=== PATIENT | female | born 1935 | race Caucasian/White ===

== ENCOUNTER 2016-08-15 05:57 | Inpatient (IN) | payer MEDICARE, OTHER, MEDICAID ==
[~2016-08-15] VITALS: Ht 40.6 cm; Wt 83.2 kg
--- NOTE | ~2016-08-15 | ECH ---
Transthoracic Echocardiography Report (TTE) Demographics Patient Name CRISTAL KIRK Date of Study 08/22/2016 Patient Number [id number] Visit Number [id number] Date of 1935 Room Number 618 Accession Number [id number] Gender Female Age 81 year(s) Referring Silvano Gonzales Gas Blender Danisha Gray [facility] Physician MD Pauly Fairchild MD Physician Interpreting [facility] [employer] Screw Machine Set Up Operator Physician MD Supervising Ordering Physician Pauly Fairchild MD, MD/P Nurse Stress Microbiology Lab Analyst Conclusions Summary Technically good exam. The estimated left ventricular ejection fraction is 60%. Diastolic assessment reveals Grade I diastolic dysfunction. There is mild aortic regurgitation by color Doppler. Procedure Type of Study TTE procedure:Echo Complete SF. Procedure Date Date: 08/22/2016 Start: 02:43 PM Technical Quality: Good visualization Indications:Elevated Troponin and Hypertension. Appropriate Use Criteria: 9 Height: 64 inches Weight: 182 pounds BSA: 1.88 m Rhythm: NSR HR: 82 bpm BP: 155/65 mmHg M-Mode/2D Measurements LV Diastolic Dimension: 4.44 cm LV Systolic Dimension: 3.1 cm LV Septum Diastolic: 0.94 cm LV PW Diastolic: 0.92 cm AO Root Dimension: 3.03 cm Cardiac Output: 4.49 l/min LA Dimension: 3.45 cm Cardiac Index: 2.39 l/min*m RV Diastolic Dimension: 3.12 cm LA volume index: 27 ml/m LVOT: 1.8 cm LVOT VTI: 21.53 cm RV Base: 2.9 cm LV Stroke volume: 54.76 ml RV Mid: 2.3 cm LV Stroke volume index: 29.13 ml/m TAPSE: 2.7 cm TDI-S': 15 cm/s Doppler Measurements AV Peak Velocity: 1.4 m/s MV Peak E-Wave: 0.94 m/s AV Peak Gradient: 7.84 mmHg MV Peak A-Wave: 1.15 m/s AV Mean Gradient: 4.46 mmHg MV E/A Ratio: 0.82 LVOT Peak Velocity: 1 m/s MV P1/2t: 80.1 msec AV Area (Continuity):2.04 cm AV P1/2t: 441.7 msec MV Deceleration Time: 327.4 msec TR Velocity:2.68 m/s MV Area (PHT): 2.75 cm TR Gradient:28.73 mmHg PV Peak Velocity: 1.15 m/s Estimated RAP:3 mmHg PV Peak Gradient: 5.31 mmHg Estimated RVSP: 32 mmHg Estimated PASP: 31.73 mmHg E' Septal Velocity: 0.08 m/s A' Septal Velocity: 0.1 m/s E' Lateral Velocity: 0.1 m/s A' Lateral Velocity: 0.12 m/s RA Area: 12.59 cm Findings Left Ventricle Normal left ventricle size and function. Diastolic assessment reveals Grade I diastolic dysfunction. Right Ventricle Normal right ventricle structure and function. Left Atrium Normal left atrial size. Right Atrium Normal right atrial size. Mitral Valve Normal mitral valve structure and function. Mild mitral regurgitation by color Doppler. Aortic Valve The aortic valve is mildly sclerotic. There is mild aortic regurgitation by color Doppler. Tricuspid Valve Normal tricuspid valve structure and function. Trivial tricuspid regurgitation by color Doppler. Normal pulmonary pressures. Pulmonic Valve Normal pulmonic valve structure and function. Trivial pulmonic valve regurgitation by color Doppler. Pericardial Effusion No evidence of pericardial effusion. Miscellaneous Visualized portions of the aortic root and ascending aorta appear normal in size. Suboptimal subcostal window to evaluate the IVC and interatrial septum. Pleural Effusion No evidence of pleural effusion. Signature
--- NOTE | 2016-08-22 15:06 | CO ---
ADMIT: 08/18/2016 RM/LOC: 618 [facility] MR#: [id number] [address] [place], [place] [address] CRISTAL KIRK [address] [facility] [address] [place] [address] Consultation SEX: F AGE: 81 : 1935 DATE OF CONSULTATION: 08/22/2016 ATTENDING PHYSICIAN: Christian Schaefer CONSULTING PHYSICIAN: Geo Coats MD REASON FOR CONSULT: Evaluation of hypertension and positive troponin. HISTORY OF PRESENT ILLNESS: The patient is a very pleasant, 81-year-old female, who normally sees Dr. Knight up in [place]. Sees her for hypothyroidism, hypertension. Has had some issues where she has had to go to the ER in the last few years for elevated hypertension. Has never really stayed over night it sounds like. The patient states that overall she has had some substernal upper epigastric pain worse this morning. No fevers. No chills. Some very mild shortness of breath. Gets fatigued very easily. She had a ventral hernia repair and was admitted to the hospital for that on the and has really struggled with some postop ileus since that time. She has had some intermittent severe hypertension at times treated with IV hydralazine with great response. The patient remains with NG in to suction at this time. The patient otherwise prior to all this surgery had been in her usual state of health. Overall, not as active as she used to be due to some back surgery in the last year but really up until that point in time was an avid walker, walking all [place], it sounds like. PAST MEDICAL HISTORY: 1. Hypothyroidism postsurgical. 2. History of hysterectomy, cholecystectomy, back surgery. 3. Hypertension. 4. Chronic back pain. FAMILY HISTORY: Significant for her mother dying of heart disease during bypass at age 75. SOCIAL HISTORY: Smoked for about 30 years but quit 30 some years ago as well. No alcohol use. . Lives at home in [place]. MEDICATIONS: Current medications include: 1. Coreg 25 mg p.o. b.i.d. 2. Aspirin 81 mg a day. 3. Arimidex 1 mg daily. 4. Cozaar 100 mg at. 5. Balsalazide 400 mg p.o. t.i.d. 6. Effexor 75 mg daily. 7. Lactulose. 8. Pravachol. 9. Synthroid. 10.Dulcolax suppository. 11.Lovenox. 12.Colace. ADMIT: 08/18/2016 RM/LOC: 618 [facility] MR#: [id number] [address] [address] CRISTAL KIRK [address] [id number] Consultation SEX: F AGE: 81 : 1935 13.Caltrate. REVIEW OF SYSTEMS: As per HPI. Otherwise, completely reviewed and negative. PHYSICAL EXAMINATION: VITAL SIGNS: Blood pressure currently is 180/74, pulse is 82, O2 saturation 93% on room air. GENERAL: She is alert and oriented x3. No acute distress. Very pleasant. Talkative. HEENT: Normocephalic, atraumatic. Pupils are equal bilaterally. Dry mucous membranes. NG in place. NECK: No lymphadenopathy. Soft, supple. Trachea midline. LUNGS: Clear to auscultation bilaterally. No wheezes, rales, or rhonchi. HEART: Regular rate and rhythm. No murmurs, rubs, or gallops. ABDOMEN: Soft, nontender, nondistended. Bowel sounds present. EXTREMITIES: No cyanosis, clubbing, or edema. MUSCULOSKELETAL: 5/5 strength in all 4 extremities. NEUROLOGICAL: No focal deficits noted. Cranial nerves II through XII grossly intact. SKIN: No rashes noted. LABORATORY AND X-RAY DATA: Creatinine is 0.8, troponin 0.09, CK is 330, CK-MB is negative. Hemoglobin 10.7, platelets 373. Potassium 3.5, carbon dioxide 24. AST, ALT, and bilirubin all normal. Chest CT scan shows some atelectasis only. No PE reported. IMAGING: CT scan is pending. ASSESSMENT AND PLAN: 1. Status post ventral hernia repair. 2. Postop ileus. 3. Hypertension. 4. Positive troponin. ADMIT: 08/18/2016 RM/LOC: 618 [facility] MR#: [id number] [address] [address] CRISTAL KIRK [facility] [place] [address] Consultation SEX: F AGE: 81 : 1935 At this point in time, we will add some p.r.n. hydralazine IV. I really question if she is absorbing much of her oral antihypertensives due to her ileus. We will just watch her closely with IV hydralazine for now. Possibly and labetalol IV if necessary. In regards to her troponin, it is very mildly elevated at 0.09. May have some underlying disease at baseline but her EKG reviewed today looks okay. Likely needs an outpatient stress evaluation once she is improved. We will check a troponin again later today. Get an echo. Thank you for this consult. We will continue to follow along with her while she is hospitalized. Please do not hesitate to call with questions. Geo Coats MD/ elvia JOB #: [id number] CC: Christian Schaefer, Attending Physician [place] Knight, Family Physician
--- NOTE | 2016-08-24 20:44 | OR ---
ADMIT: 08/15/2016 RM/LOC: [facility] MR#: [id number] [address] [address] CRISTAL KIRK [address] [address] Operative/Delivery Room Report SEX: F AGE: 81 : 1935 SURGERY DATE: 08/15/2016 SURGEON: Christian Schaefer MD PREOPERATIVE DIAGNOSIS: Multiple ventral incisional hernias. POSTOPERATIVE DIAGNOSIS: Multiple ventral incisional hernias. PROCEDURE: Laparoscopic repair of multiple ventral incisional hernias with Ventralight ST 11.4 cm circular mesh. LEAD INFORMATICA DEVELOPER: Gigi Rowell MD, whose assistance was necessary for laparoscopic visualization and tissue retraction. ANESTHESIA: General endotracheal. ESTIMATED BLOOD LOSS: 10 mL. DESCRIPTION OF PROCEDURE: The patient was taken to the operating room and placed supine on the operating room table. General anesthesia was established. The abdomen was prepped and draped in the standard surgical fashion. A 5 mm subcostal incision was made in the left mid clavicular line. A Veress needle was advanced into the peritoneal cavity. Carbon dioxide was used to insufflate the abdomen to 15 mmHg pressure. The Veress needle was withdrawn, and a 5 mm Optiview trocar was placed. Next, a 5 mm infraumbilical left lateral ports were placed under visualization. A 12 mm left lower quadrant port was placed under visualization as well. Adhesions into the anterior abdominal wall were taken down with Harmonic Scalpel. The chronically incarcerated small piece of omental fat was reduced from the largest of the defects. Additional adhesiolysis allowed complete exposure of the right upper quadrant abdominal wall. There were two other smaller defects. One of these was repaired primarily with a [id number] 0 Ethibond suture as it was quite small. The 11.[address] mesh was placed intra-abdominally. The fascial margins of the largest defect were ADMIT: 08/15/2016 RM/LOC: [facility] MR#: [id number] [address] [address] CRISTAL KIRK [address] [address] Operative/Delivery Room Report SEX: F AGE: 81 : 1935 closed primarily with 0 Ethibond suture and the suture passer. This repair was then buttressed with the Ventralight mesh which was brought to the anterior abdominal wall with the Echo positioning system. This was then secured circumferentially as well as in the center of the mesh with the SecureStrap device. This provided excellent overlap of the defects. The ports were then removed under visualization without evidence of bleeding. The fascial margin at the 12 mm port site was approximated with 0 Vicryl suture and the suture passer. The abdomen was allowed to deflate. Skin edges were approximated with 4-0 Monocryl in a subcuticular fashion and Dermabond. Local anesthetic was injected at the incisions. Sponge, needle, and instrument counts were correct at the end of the case. The patient tolerated the procedure well and transferred to the recovery area in stable condition. Christian Schaefer MD/ ben JOB #: [id number] CC: Christian Schaefer, Attending Physician [place] Knight, Family Physician
[2016-08-26] MEDS ORDERED: CARVEDILOL25 MG PO (11:37)
[2016-08-26] MEDS ORDERED: EFFEXOR XR75 MG PO (11:37)
[2016-08-26] MEDS ORDERED: LEVOTHYROXINE50 MCG PO (11:38)
[2016-08-26] MEDS ORDERED: BALSALAZIDE DI750 MG PO (11:38)
[2016-08-26] MEDS ORDERED: COZAAR DPS50 MG PO (11:38)
[2016-08-26] MEDS ORDERED: PRAVACHOL80 MG PO (11:38)
[2016-08-26] MEDS ORDERED: ENULOSE10 GM/15 M PO (11:38)
[2016-08-26] MEDS ORDERED: DAILY MULTIPLE1 EAC1 PO (11:39)
[2016-08-26] MEDS ORDERED: COLACE-DPS100 MG PO (11:39)
[2016-08-26] MEDS ORDERED: ARIMIDEX DPS1 MG PO (11:39)
[2016-08-26] MEDS ORDERED: CALCIUM 600 +1 EAC6 PO (11:39)
[2016-08-26] MEDS ORDERED: ASA325 MG PO (11:39)
[2016-08-26] MEDS ORDERED: NORVASC5 MG PO (11:40)
[2016-08-26] MEDS ORDERED: DULCOLAX-DPS10 MG PR (11:40)
--- NOTE | 2016-09-01 11:05 | DS ---
ADMIT: 08/18/2016 RM/LOC: 618 [facility] MR#: [id number] [address] [address] CRISTAL KIRK [address] [address] Discharge Summary SEX: F AGE: 81 : 1935 ADMISSION DATE: 08/18/2016 DISCHARGE DATE: 08/25/2016 ADMITTING DIAGNOSIS: Multiple ventral incisional hernias. DISMISSAL DIAGNOSES: 1. Multiple ventral incisional hernias. 2. Hypothyroidism. 3. Hypertension. 4. Chronic back pain. 5. Previous hysterectomy. 6. Previous cholecystectomy. 7. Previous back surgery. PROCEDURES: Laparoscopic repair of multiple ventral hernias with VentraLight ST 11.4 cm circular mesh. HOSPITAL COURSE: The patient was a short-stay admit with routine med surg orders. After surgery, the patient remained in short-stay and was given morphine IV push in addition to oral pain medications for pain control. This unfortunately did not control his pain, and so the patient was admitted for observation with a Dilaudid HEAD CHEF. He continued to have exquisite pain. His abdomen was distended and overall was not feeling well. He was then changed to an inpatient status and perf series was ordered, which revealed partial small-bowel obstruction versus ileus. An NG was placed at this time. Afterward, the patient was quite a bit nauseous. However, she was ambulating well. Then on postop day #2, it was noted that she became very hypertensive, systolics were about in the 200 range which was treated with hydralazine IV. It sounds like on postop day #3, the patient developed some chest pressure. Cardiac workup was undertaken with CK, troponin, 12-lead EKG, and home blood pressure medications were continued. EKG was negative along with her cardiac workup. Because of the complexity of this case, BRYNN was consulted. On postop day #4, her NG was clamped and aspirin was started. The patient was passing flatus on postop day #4, but she was still quite distended, and repeat CAT scan was obtained. CAT scan was negative, so the patient was started on clears and slowly advanced the diet. She tolerated a clamped NG, so it was pulled in 24 hours. Pain was controlled at this time when patient tolerated an advanced diet. She was up ambulating. Vitals began to normalize and her lab work was within normal limits. Her nausea cleared up quite a bit, but she still had some residual upon dismissal. It was noted that the patient would benefit from a swing bed, and so she transferred to the [facility] Swing Bed on 08/25/2016. At this time, NG was pulled, and the patient was tolerating a regular diet. DISCHARGE INSTRUCTIONS: 1. Resume regular diet. 2. Follow up with Dr. Schaefer in 1-2 weeks. DISCHARGE MEDICATION LIST: ADMIT: 08/18/2016 RM/LOC: 618 [facility] MR#: [id number] [address] [place] [id number] CRISTAL KIRK [address] [place] [address] Discharge Summary SEX: F AGE: 81 : 1935 1. Arimidex 1 mg tab p.o. daily. 2. Aspirin 325 mg p.o. daily. 3. Caltrate 600 mg b.i.d. 4. Colace 100 mg b.i.d. 5. Coreg 25 mg b.i.d. 6. Cozaar 50 mg 2 tabs as directed. 7. Delzicol 400 mg t.i.d. 8. Effexor 75 mg daily. 9. Lactulose 15 mL daily. 10.Norvasc 5 mg daily. 11.Pravachol 80 mg as directed. 12.Synthroid 0.05 mg in the morning. 13.Therapeutic multivitamins daily. 14.Dulcolax 10 mg suppository per rectum b.i.d. GEORGE Hubbard / Christian Schaefer MD / ajf JOB #: [id number] CC: Christian Schaefer MD, Attending Physician [place] Knight MD, Family Physician
== END 2016-08-25 16:15 | DRG 354 ==
LOC: SSS 05:57 → 6PED 12:44 → SSS 16:26 → 6PED 08-18 14:19
PROVIDERS: ADMIT Surgery
PROC: 0WUF4JZ Supplement Abdominal Wall with Synthetic Substitute, Percutaneous Endoscopic Approach (ICD-10-PCS; principal; 2016-08-15)
DX: K91.3 Postprocedural intestinal obstruction (principal); J98.11 Atelectasis; R13.10 Dysphagia, unspecified; I10 Essential (primary) hypertension; K43.2 Incisional hernia without obstruction or gangrene; E78.5 Hyperlipidemia, unspecified; E89.0 Postprocedural hypothyroidism; M54.9 Dorsalgia, unspecified; K21.9 Gastro-esophageal reflux disease without esophagitis; K59.00 Constipation, unspecified; M81.0 Age-related osteoporosis without current pathological fracture; G89.29 Other chronic pain; Z82.49 Family history of ischemic heart disease and other diseases of the circulatory system; Z87.891 Personal history of nicotine dependence; Z79.82 Long term (current) use of aspirin; R79.89 Other specified abnormal findings of blood chemistry; R91.1 Solitary pulmonary nodule